=== PATIENT | female | born 1935 | race Caucasian/White ===

== ENCOUNTER 2022-01-06 14:16 | Emergency (ER) | payer MEDICARE ==
[2022-01-06 16:50] LABS: BASOPHIL 0.4 % (0-2); EOSINOPHIL 0.6 % (0-7); HCT 44.4 % (37.0-47.0); HGB 15.2 g/dl (12.5-16.0); LYMPHOCYTE 20.8 % (15-48); MCH 31.3 pg (25.0-31.0); MCHC 34.2 g/dL (32.0-36.0); MCV 91.5 fL (78.0-100.0); MONOCYTE 6.3 % (0-12); MPV 10.6 fL (6.0-9.5); NEUTROPHIL 71.6 % (41-80); NRBC 0; PLT 170 K/uL (150-400); RBC 4.85 M/uL (4.20-5.40); RDW 12.8 % (11.5-14.0); WBC 7.8 K/uL (4.0-10.5)
[2022-01-06 16:58] LABS: INR 0.95 (0.9-1.2); PROTHROMBIN TIME 12.4 SECONDS (11.9-13.9)
[2022-01-06 17:25] LABS: ALBUMIN 4.4 g/dL (3.4-5.0); BILIRUBIN - TOTAL 0.5 mg/dL (0.2-1.0); BUN/CREAT RATIO (CALC) 22.1 RATIO; CREATININE 0.95 mg/dL (0.51-0.95); GLOBULIN (CALCULATION) 3.9 g/dL; POTASSIUM 4.3 mmol/L (3.5-5.1); TOTAL PROTEIN 8.3 g/dL (6.4-8.2)
[2022-01-06 17:45] LABS: BILIRUBIN NEGATIVE (NEGATIVE); BLOOD NEGATIVE Ery/uL (NEGATIVE); CLARITY CLEAR (CLEAR); COLOR YELLOW (YELLOW); GLUCOSE (U) NORMAL (NORMAL); LEUKOCYTES TRACE Leu/uL (NEGATIVE); NITRITE NEGATIVE (NEGATIVE); PROTEIN NEGATIVE (NEGATIVE); UROBILINOGEN 0.2 mg/dL (0.2-1.0); pH 5.5 (5.0-9.0)
[2022-01-06 17:53] LABS: BACTERIA TRACE; URINARY RBC RARE; URINARY WBC RARE
== END 2022-01-06 18:09 | disposition home or self-care (01) ==
LOC: FER 14:16
PROVIDERS: Internal Medicine
DX: R55 Syncope and collapse (principal); I10 Essential (primary) hypertension; Z28.311 Partially vaccinated for COVID-19
CPT/HCPCS: 36415; 70450; 80053; 81001; 83605; 83880; 84484; 85025; 85610; 85730; 93005; J2543; J7030